=== PATIENT | female | born 1960 | race Caucasian/White ===

== ENCOUNTER 2022-05-24 20:09 | Inpatient (IN) | payer OTHER ==
[~2022-05-24] VITALS: Ht 167.6 cm; Wt 76.2 kg
[2022-05-24] MEDS ORDERED: IV NORMAL SALINE 1000 ML BAG IV ONE (21:00)
[2022-05-24] MEDS ORDERED: PANTOPRAZOLE SODIUM IV 80 MG in IV DEXTROSE 5% 500 ML IV ONE (21:00)
[2022-05-24] MEDS ORDERED: ONDANSETRON 4 MG/2 ML VIAL IV ONE (21:00)
[2022-05-24] MEDS ORDERED: PANTOPRAZOLE SODIUM 40 MG VIAL IV ONE (21:00)
[2022-05-24] MEDS ORDERED: LORAZEPAM 2 MG/1 ML VIAL IV ONE (21:00)
[2022-05-24] MEDS ORDERED: ONDANSETRON 4 MG/2 ML VIAL ONE (21:12)
[2022-05-24] MEDS ORDERED: LORAZEPAM 2 MG/1 ML VIAL ONE (21:13)
[2022-05-24 21:15] LABS: HEMATOCRIT 40.3 % (31.2-41.9); MEAN CORPUSCULAR VOLUME 93.9 fL (75.5-95.3); PLATELET COUNT (AUTO) 94 K/uL (179-408)
[2022-05-24] MEDS ORDERED: PANTOPRAZOLE SODIUM 40 MG VIAL ONE (21:24)
[2022-05-24 21:28] LABS: CARBON DIOXIDE 30 mmol/L (21-32); CHLORIDE 90 mmol/L (98-107); CREATININE 0.6 mg/dL (0.6-1.3); GLUCOSE 174 mg/dL (74-106); POTASSIUM 2.9 mmol/L (3.5-5.1); UREA NITROGEN, BLOOD 12 mg/dL (7-18)
[2022-05-24 21:32] LABS: ETHANOL < 3 MG/DL (0-0)
[2022-05-24 21:41] LABS: THYROID STIMULATING HORMONE 0.569 mIU/mL (0.358-3.740)
[2022-05-24 21:52] LABS: ALANINE AMINOTRANSFERASE 34 U/L (14-59); ALKALINE PHOSPHATASE 114 U/L (50-136); ASPARTATE AMINOTRANSFERASE 65 U/L (15-37); BILIRUBIN,DIRECT 0.4 mg/dL (0.0-0.2); BILIRUBIN,TOTAL 1.3 mg/dL (0.2-1.0); TOTAL PROTEIN, SERUM 9.1 g/dL (6.4-8.2)
[2022-05-24 22:18] LABS: ACETAMINOPHEN < 2.0 ug/mL (10-30)
[2022-05-24] MEDS: MAGNESIUM SULFATE/D5W 100 ML IV SCH ×2 (22:38→23:03)
[2022-05-24] MEDS: POTASSIUM CHLORIDE 50 ML IV SCH ×2 (22:38→23:23)
[2022-05-24 22:41] LABS: BAND % (MANUAL) 2 % (0-10); LYMPHOCYTES % (MANUAL) 6 % (20-40); MONOCYTES % (MANUAL) 4 % (2-10)
[2022-05-24 22:42] LABS: NEUTROPHILS % (MANUAL) 88 % (42-75)
[2022-05-25] MEDS: POTASSIUM CHLORIDE 50 ML IV SCH ×3 (00:17→02:15)
[2022-05-25] MEDS ORDERED: REMEDY ESSENTIAL ZINC PASTE 113 GM TP PRN (00:30)
[2022-05-25] MEDS ORDERED: MAGNESIUM HYDROXIDE 30 ML LIQUID UDC PO PRN (00:30)
[2022-05-25] MEDS ORDERED: ONDANSETRON 4 MG/2 ML VIAL IV PRN (00:30)
[2022-05-25] MEDS ORDERED: LORAZEPAM 2 MG/1 ML VIAL IV PRN (00:30)
[2022-05-25] MEDS ORDERED: ACETAMINOPHEN 325 MG TABLET PO PRN (00:30)
[2022-05-25] MEDS ORDERED: ENOXAPARIN SODIUM 40 MG/0.4 ML DISP.SYRIN SQ SCH ×2 (02:00→21:00)
[2022-05-25] MEDS: IV NS 1000 ML 1,000 ML IV PRN ×2 (02:17→13:02)
[2022-05-25] MEDS: CHLORDIAZEPOXIDE HCL 25 MG CAPSULE PO SCH ×3 (02:20→17:27)
[2022-05-25 02:34] VITALS: BP 115/70
[2022-05-25 05:00] VITALS: BP 125/65
[2022-05-25 07:05] LABS: MEAN CORPUSCULAR HEMOGLOBIN 31.8 uug (24.7-32.8); MEAN CORPUSCULAR VOLUME 96.1 fL (75.5-95.3); PLATELET COUNT (AUTO) 84 K/uL (179-408)
[2022-05-25 07:24] LABS: CREATININE 1.1 mg/dL (0.6-1.3); MAGNESIUM 1.9 mg/dL (1.8-2.4); POTASSIUM 3.3 mmol/L (3.5-5.1)
[2022-05-25] MEDS: FOLIC ACID 1 MG TABLET PO SCH (08:27)
[2022-05-25] MEDS: PANTOPRAZOLE SODIUM 40 MG VIAL IV SCH (08:28)
[2022-05-25] MEDS: THIAMINE HCL 100 MG TABLET PO SCH (08:28)
[2022-05-25] MEDS ORDERED: POTASSIUM CHLORIDE 20 MEQ TAB.PRT.SR PO ONE (09:30)
[2022-05-25 12:00] VITALS: BP 102/61
[2022-05-25 16:00] VITALS: BP 107/71
[2022-05-25 20:00] VITALS: BP_SYST 107; BP_SYST 117; BP_DIAS 71; BP_DIAS 72
[2022-05-26] VITALS: BP 118/68
[2022-05-26 04:04] VITALS: BP 108/66
[2022-05-26] MEDS: PANTOPRAZOLE SODIUM 40 MG VIAL IV SCH (08:22)
[2022-05-26] MEDS: THIAMINE HCL 100 MG TABLET PO SCH (08:22)
[2022-05-26] MEDS: CHLORDIAZEPOXIDE HCL 25 MG CAPSULE PO SCH (08:22)
[2022-05-26] MEDS: FOLIC ACID 1 MG TABLET PO SCH (08:22)
[2022-05-26 11:32] VITALS: BP 110/63
== END 2022-05-26 15:45 | DRG 422 ==
LOC: ER 20:13 → TELE3 05-25 00:20
PROVIDERS: ADMIT Nurse Practitioner Family; ATTEND Nurse Practitioner Acute Care
DX: E87.6 Hypokalemia (principal); E86.0 Dehydration; D69.6 Thrombocytopenia, unspecified; F10.239 Alcohol dependence with withdrawal, unspecified; E87.1 Hypo-osmolality and hyponatremia; R11.2 Nausea with vomiting, unspecified; Z59.01 Sheltered homelessness; Z87.11 Personal history of peptic ulcer disease; K29.70 Gastritis, unspecified, without bleeding; M50.320 Other cervical disc degeneration, mid-cervical region, unspecified level; I10 Essential (primary) hypertension; Y90.0 Blood alcohol level of less than 20 mg/100 ml; E83.52 Hypercalcemia
CPT/HCPCS: 36415; 70030-TC; 70450; 71045; 72125; 73030; 83605; 83735; 84443; 84484; 85025; 85730; 87040; 93005; A4663; C9113; G0378; G0480; J1650; J2060; J2405; J3475; J3480; J7040; J7060